=== PATIENT | female | born 1990 | race Caucasian/White ===

== ENCOUNTER 2018-05-14 16:30 | Outpatient (REF) | payer BC, SELFPAY ==
--- NOTE | 2018-05-14 15:30 | PAPFT_PTH ---
PATIENT: LAN EATON LOC: [facility] U#:[id number] AGE/SX: 28/F ROOM: RE05/14/[address]: Alida Gold MD, DC : 1990 BED: DIS: 05/14/2018 SPEC #: [id number] RECD: 05/15/18 12:58 STATUS: DARREL REGrupo #: [id number] STEFANO: 05/14/18 15:[address]: Kajal Hill DEPT: [facility] Cytology RECD BY: Sofy Easley ENTERED: 05/15/18 12:59 SP TYPE: PAPFT OTHR DR: Alida Gold MD, DC Tissues: 1 - CX/ENDOCX FOR PAP SMEARS Procedures: PAP THIN PREP/[facility] Screening Comments: [id number]
== END 2018-05-14 16:50 ==
LOC: LBN 16:30
PROVIDERS: PCP Family Medicine; Visit Provider Family Medicine
DX: Z12.4 Encounter for screening for malignant neoplasm of cervix (principal)
CPT/HCPCS: 88142